=== PATIENT | male | born 1970 | race Caucasian/White ===

== ENCOUNTER 2017-07-31 10:20 | Emergency (ER) | payer BC ==
[~2017-07-31] VITALS: Ht 172.7 cm; Wt 86.3 kg
[2017-07-31 10:20] VITALS: BP 156/91
[2017-07-31] MEDS ORDERED: KETOROLAC 60 MG/2 ML VIAL (J1885) IM ONE (11:30)
--- NOTE | 2017-07-31 12:07 | REP ---
LEFT SHOULDER, THREE VIEWS: HISTORY: Fracture. There is a comminuted fracture of the mid left clavicle. There is no dislocation. The joint spaces are normal in appearance. IMPRESSION: Comminuted fracture of the mid clavicle. Signed by Jorje Whitaker MD 07/31/2017 12:24 P
--- NOTE | 2017-07-31 12:08 | REP ---
LEFT CLAVICLE, TWO VIEWS: HISTORY: Trauma. There is a comminuted fracture of the mid clavicle. There is no dislocation. The joint spaces are normal in appearance. IMPRESSION: Comminuted fracture of the mid clavicle. Signed by Jorje Whitaker MD 07/31/2017 12:23 P
[2017-07-31] MEDS ORDERED: NORCOTAB PO (13:02)
== END 2017-07-31 13:21 | disposition home or self-care (01) ==
LOC: M ED 10:20
DX: S42.022A Displaced fracture of shaft of left clavicle, initial encounter for closed fracture (principal); W01.198A Fall on same level from slipping, tripping and stumbling with subsequent striking against other object, initial encounter; Y92.019 Unspecified place in single-family (private) house as the place of occurrence of the external cause; Y93.01 Activity, walking, marching and hiking; Y99.8 Other external cause status
CPT/HCPCS: 73000; 73030; 96372; 99283; J1885

== ENCOUNTER → 2019-04-06 | Outpatient (REF) | payer BC ==
[~2019-04-06] MED LIST: HYDR-3715 PO
== END ==
LOC: M LAB REF 17:29
PROVIDERS: ATTEND Physician Assistant
DX: N39.0 Urinary tract infection, site not specified (principal)

== ENCOUNTER → 2024-11-01 | Outpatient (CLI) | payer BC, OTHER | LOC: M CARPUL 10:31 | PROVIDERS: ATTEND Physician Assistant | DX: R05.3 Chronic cough (principal) ==

== ENCOUNTER → 2024-11-08 | Outpatient (CLI) | payer OTHER ==
[~2024-11-08] MED LIST changes: +METHACHOLINE KIT (6 VIAL.NEB PREMIX) INH ONE
== END ==
LOC: M CARPUL 07:29
PROVIDERS: ATTEND Physician Assistant
DX: R05.3 Chronic cough (principal)
CPT/HCPCS: 94070; 95070; J7674

== ENCOUNTER → 2024-11-13 | Outpatient (CLI) | payer OTHER ==
[~2024-11-13] MED LIST changes: -METHACHOLINE KIT (6 VIAL.NEB PREMIX) INH ONE
== END ==
LOC: M RAD 08:32
PROVIDERS: ATTEND Physician Assistant
DX: R05.3 Chronic cough (principal); Z65.5 Exposure to disaster, war and other hostilities

== ENCOUNTER 2025-05-03 11:18 | Day surgery (SDC) | payer OTHER ==
[~2025-05-03] VITALS: Ht 172.7 cm; Wt 94.0 kg
[~2025-05-03 11:18] MED LIST changes: +AMIT25TA19 PO; +AMLO1TAB24 PO; +ERGO500029 PO; +LIDOCAINE 2% 100 MG/5 ML SDV (FOR ANES.) As Ordered ONE
[2025-05-03 12:43] VITALS: TEMP 97.2
[2025-05-03 13:03] VITALS: BP 165/90; O2SAT 99
== END 2025-05-03 13:07 | disposition home or self-care (01) ==
LOC: M OPP 11:18
PROVIDERS: ATTEND Surgery
DX: K57.30 Diverticulosis of large intestine without perforation or abscess without bleeding (principal); K64.1 Second degree hemorrhoids; K92.1 Melena; Z79.899 Other long term (current) drug therapy